=== PATIENT | female | born 1965 | race Caucasian/White ===

== ENCOUNTER 2021-05-23 19:33 | Emergency (ER) | payer BC, OTHER ==
[2021-05-23] MEDS ORDERED: cloNIDine 0.1 MG Tab PO ONE (19:39)
--- NOTE | 2021-05-23 20:17 | EDM.PDOC ---
ED HPI GENERAL MEDICAL PROBLEM - General Chief Complaint: General Stated Complaint: High BP Time Seen by Provider: 05/23/21 19:59 Source of Information: Reports: Patient History Limitations: Reports: No Limitations - History of Present Illness INITIAL COMMENTS - FREE TEXT/NARRATIVE: Patient comes in with complaint of high blood pressure. She has a machine at home and found the reading to be elevated this afternoon. She repeatedly took her blood pressure over several hours and admitted that she was getting anxious as the readings keep getting higher. She decided to come in with the measurement was in 180s/100s. Denies any associated changes such as headache, vision change, neuro changes. Has been taking a natural supplement to try to improve her blood pressure. Patient admits that she took one of her 's Amlodipine just before deciding to come to ER. Treatments BRIDAL CONSULTANT: Reports: Other Medication(s) - Related Data Allergies Allergy/AdvReac Type Severity Reaction Status Date / Time No Known Allergies Allergy Verified 05/23/21 19:39 Past Medical History - Past Health History Medical/Surgical History: Denies Medical/Surgical History Social & Family History - Tobacco Use Tobacco Use Status *Q: Never Tobacco User Second Hand Smoke Exposure: No - Caffeine Use Caffeine Use: Reports: Coffee - Recreational Drug Use Recreational Drug Use: No ED ROS GENERAL - Review of Systems Review Of Systems: See Below Constitutional: Reports: No Symptoms HEENT: Reports: No Symptoms Respiratory: Reports: No Symptoms Cardiovascular: Reports: Blood Pressure Problem. Denies: Chest Pain, Dyspnea on Exertion, Lightheadedness, Palpitations, Syncope GI/Abdominal: Reports: No Symptoms : Reports: No Symptoms Musculoskeletal: Reports: No Symptoms Skin: Reports: No Symptoms Neurological: Reports: No Symptoms. Denies: Dizziness, Headache, Difficulty Walking, Change in Speech Psychiatric: Reports: Other (anxious when blood pressure was elevating) Hematologic/Lymphatic: Reports: No Symptoms ED EXAM, GENERAL - Physical Exam Exam: See Below Exam Limited By: No Limitations General Appearance: Alert, WD/WN, No Apparent Distress Eye Exam: Bilateral Eye: PERRL Ears: Normal External Exam, Normal Canal, Hearing Grossly Normal Nose: No: Nasal Deformity, Nasal Swelling, Nasal Drainage Throat/Mouth: Normal Lips, Normal Voice, No Airway Compromise Head: Atraumatic, Normocephalic Neck: Normal Inspection, Supple, Non-Tender, Full Range of Motion Respiratory/Chest: No Respiratory Distress, Lungs Clear, Normal Breath Sounds, No Accessory Muscle Use, Chest Non-Tender Cardiovascular: Regular Rate, Rhythm, No Murmur GI/Abdominal: Soft, Non-Tender (Female) Exam: Deferred Rectal (Female) Exam: Deferred Back Exam: Normal Inspection Extremities: Normal Inspection, Normal Range of Motion, Normal Capillary Refill Neurological: Alert, Oriented, CN II-XII Intact, Normal Cognition, Normal Gait, No Motor/Sensory Deficits Psychiatric: Normal Affect, Normal Mood Course - Vital Signs Last Recorded V/S: Last Vital Signs Temp 36.2 C 05/23/21 19:35 Pulse 69 05/23/21 19:55 Resp 14 05/23/21 19:35 BP 150/78 H 05/23/21 19:55 Pulse Ox 100 05/23/21 19:35 - Orders/Labs/Meds Labs: Laboratory Tests 05/23/21 05/23/21 Range/Units 19:58 19:58 WBC 3.7 L (4.0-10.2) K/uL RBC 4.32 (3.77-5.09) M/uL Hgb 13.8 (11.7-15.5) g/dL Hct 40.3 (34.0-46.0) % MCV 93.3 (84.0-98.0) fL MCH 31.9 (28.2-33.3) pg MCHC 34.2 (31.7-36.0) g/dL RDW 13.7 (11.2-14.1) % Plt Count 90 L (150-350) K/uL Neut % (Auto) 49.0 (45.0-80.0) % Lymph % (Auto) 37.5 (10.0-50.0) % [place] % (Auto) 12.1 (2.0-14.0) % Eos % (Auto) 1.1 (0.0-5.0) % Baso % (Auto) 0.3 (0.0-2.0) % Neut # (Auto) 1.83 (1.40-7.00) K/uL Lymph # (Auto) 1.40 (0.50-3.50) K/uL [place] # (Auto) 0.45 (0.00-1.00) K/uL Eos # (Auto) 0.04 (0.00-0.50) K/uL Baso # (Auto) 0.01 (0.00-0.20) K/uL Sodium 141 (136-145) mmol/L Potassium 3.4 L (3.5-5.1) mmol/L Chloride 104 (98-107) mmol/L Carbon Dioxide 22.7 (21.0-32.0) mmol/L Anion Gap 17.7 H (7-15) meq/L BUN 10 (7-18) mg/dL Creatinine 0.84 (0.51-1.17) mg/dL Est Cr Clr Drug Dosing TNP Estimated GFR (MDRD) > 60 mL/min Glucose 132 H (70-99) mg/dL Calcium 8.9 (8.5-10.1) mg/dL Magnesium 1.7 L (1.8-2.4) mg/dL Total Bilirubin 0.8 (0.2-1.0) mg/dL AST 48 H (15-37) U/L ALT 49 (12-78) U/L Alkaline Phosphatase 67 (46-116) IU/L Total Protein 7.7 (6.4-8.2) g/dL Albumin 4.0 (3.4-5.0) g/dL Meds: Medications Discontinued Medications Generic Name Dose Route Start Last Admin Trade Name Kenneth PRN Reason Stop Dose Admin Clonidine HCl 0.1 mg 05/23/21 19:39 Clonidine 0.1 Mg Tab PO 05/23/21 19:40 ONETIME ONE - Re-Assessments/Exams Free Text/Narrative Re-Assessment/Exam: 05/23/21 20:29 BP checked upon arrival and rechecked 10 min later after patient had chance to sit and relax. Blood pressure much improved. Patient did not want any additional medication. Basic labs ordered. 05/23/21 21:53 Mildly decreased Mag at 1.7 Thrombocytopenia noted at 90 Glucose 130 Patient recommended to start Magnesium supplementation. She does not want to be started on any prescription medication for HTN tonight but instead plans to continue to monitor her BP at home and follow up at her upcoming appointment with PCP that is less than two weeks away. Also to review thrombocytopenia with PCP. Precautions reviewed. To return to ER if she has sudden worsening problems including elevated BP/especially if accompanied by neurologic changes. Patient agreeable with plan. Departure - Departure Time of Disposition: 20:15 Disposition: Home, Self-Care 01 Condition: Good Clinical Impression: Hypomagnesemia, Thrombocytopenia Hypertension Qualifiers: Hypertension type: primary hypertension Qualified Code(s): I10 - Essential (primary) hypertension - Discharge Information *PRESCRIPTION DRUG MONITORING PROGRAM REVIEWED*: Not Applicable *COPY OF PRESCRIPTION DRUG MONITORING REPORT IN PATIENT LUIS CARLOS: Not Applicable Instructions: How to Take Your Blood Pressure Referrals: PCP,None [Primary Care Provider] - Forms: ED Department Discharge Additional Instructions: Consider starting the dietary changes we reviewed and continue to check your blood pressure twice a day. Box breathing/meditation 5 min a day. Follow up at your clinic appointment this month and review with your clinic how you are doing. Bring your blood pressure reading record. They may want to start you on medication. Start supplemental Magnesium 250mg-400mg daily. Review the low pl atelets with your provider. Both Mag and platelet levels will need rechecked. Otherwise follow up as needed in clinic or ER if you have sudden worsening problems. Sepsis Event Note (ED) - Evaluation Sepsis Screening Result: No Definite Risk - Focused Exam Vital Signs: Vital Signs Temp Pulse Resp BP Pulse Ox 05/23/21 19:55 69 150/78 H 05/23/21 19:35 36.2 C 90 14 185/81 H 100
[2021-05-23 20:23] LABS: ANION GAP 17.7 meq/L (7-15); CHLORIDE,CL 104 mmol/L (98-107); SODIUM,NA 141 mmol/L (136-145)
== END 2021-05-23 20:20 | disposition home or self-care (01) ==
LOC: LL.ED 19:33
DX: I10 Essential (primary) hypertension (principal); E83.42 Hypomagnesemia; D69.6 Thrombocytopenia, unspecified
CPT/HCPCS: 36415; 80053; 83735; 85025; 99283; 99284

== ENCOUNTER 2022-01-03 18:42 | Emergency (ER) | payer BC | END 2022-01-03 19:25 | disposition home or self-care (01) | LOC: LL.ED 18:42 | DX: D69.6 Thrombocytopenia, unspecified (principal); H69.83 Other specified disorders of Eustachian tube, bilateral; Z79.899 Other long term (current) drug therapy | CPT/HCPCS: 99283 ==